=== PATIENT | female | born 1980 ===

== ENCOUNTER 2018-09-09 22:45 | Emergency (ER) | payer MEDICAID, OTHER ==
--- NOTE | 2018-09-09 23:44 | OBHP ---
Datetime: 09/09/2018 23:40 IP Adm Impression: Term, intrauterine ; No Active Labor; Intact Membranes IP Admit Plan: Observation/Evaluation Pelvic Type - PN: Adequate Extremities - PN: Normal Abdomen - PN: Normal Back - PN: Normal Breast - PN: Not Done Lungs - PN: Normal Heart - PN: Normal Thyroid - PN: Normal Neurologic - PN: Normal HEENT - PN: Normal General - PN: Normal Membranes, Provider: Intact Contraction Comments Provider: Irregular EGA AdmitDate IP: 40.0 Vital Signs Provider: Reviewed IP Chief Complaint: Uterine contractions; Suspected ruptured membranes; Maternal discomfort Dilatation, Provider: 0 Effacement, Provider: 30 Station, Provider: -3 Genitourinary Exam: Normal DTRs - PN: Normal
[2018-09-09 23:46] VITALS: BMI 39.6
[2018-09-10 00:47] LABS: SQUAMOUS EPITHIAL 3 /hpf (0-5); URINE BACTERIA RARE (<OCC); URINE BILIRUBIN NEGATIVE (NEGATIVE); URINE BLOOD NEGATIVE (NEGATIVE); URINE CLARITY Clear (Clear); URINE COLOR Straw (YELLOW); URINE GLUCOSE (UA) NORMAL (Normal); URINE LEUKOCYTE ESTERASE NEG Leu/uL (Negative); URINE PROTEIN NEGATIVE (NEGATIVE); URINE UROBILINOGEN NORMAL mg/dL (0.2-1.0)
[2018-09-10 05:08] VITALS: BP 106/73; PULSE 76; RESP 20
== END 2018-09-10 01:05 | disposition home or self-care (01) ==
LOC: C.EROB 22:45
DX: O47.1 False labor at or after 37 completed weeks of gestation (principal); Z3A.40 40 weeks gestation of pregnancy

== ENCOUNTER 2018-09-10 23:00 | Emergency (ER) | payer MEDICAID, OTHER ==
[2018-09-09 23:46] VITALS: BMI 39.6
--- NOTE | 2018-09-11 00:47 | OBHP ---
Datetime: 09/10/2018 23:52 IP Adm Impression: Term, intrauterine IP Admit Plan: Discharge home Admit Comment, IP Provider: 37yo at 40wks EDC: 09/10/18 presents with complaint of uterine contra ctions since 5pm today. Reports brown spotting, good movements. Denies leakage of fluid. PNC: [facility] POb: G1: current - no complications PGYN: LMP: 12/09/17 Denies abnormal paps; STDs, ovarian cysts, fibroidss PMHX: denies PSHX: denies ALL: NKDA Meds: PNV SHX: denies x 3 SVE: C/50/-3/medium consistency TOCO: q6-9 min EFM: 130s, mod variability (+) accels (-) decels A/P: 37yo at 40wks r/p labor stable; afebrile early labor Tylenol/Benadryl PRN Labor Precautions DC home, f/u in clinic Pelvic Type - PN: Adequate Extremities - PN: Abnormal Abdomen - PN: Normal General - PN: Normal FHR - Baseline A Provider: 130 Membranes, Provider: Intact Contraction Comments Provider: q6-8 min Comments, ACOG Physical Exam: 2+ edema Gestation - Est Wks by US: 40.0 EGA AdmitDate IP: 40.0 Vital Signs Provider: Reviewed IP Chief Complaint: Uterine contractions NICHD Variability Prov Fetus A: Moderate 6-25bpm NICHD Accel Fetus A IP Provider: 15X15 FHR Category Provider Fetus A: Category I NICHD Decel Fetus A IP Provider: None Dilatation, Provider: 0 Effacement, Provider: 50 Station, Provider: -3 DTRs - PN: Normal
[2018-09-13 11:33] VITALS: BP 115/56; PULSE 71; TEMP 97
== END 2018-09-11 00:45 | disposition home or self-care (01) ==
LOC: C.EROB 23:00
DX: O47.1 False labor at or after 37 completed weeks of gestation (principal); Z3A.40 40 weeks gestation of pregnancy